=== PATIENT | female | born 1990 | race Caucasian/White ===

== ENCOUNTER 2018-06-12 20:30 | Emergency (ER) | payer MEDICAID ==
[2018-06-12 20:35] VITALS: Ht 154.9 cm
[2018-06-12 21:25] LABS: BASOPHIL % 0.7 % (0-2); PLATELET COUNT 285 x10^3mcL (130-400); RED CELL DISTRIBUTION WIDTH 14.1 % (11.5-14.5)
[2018-06-12 21:34] LABS: CALCIUM 8.5 mg/dL (8.5-10.1); CARBON DIOXIDE 26.2 mmol/L (21-32); CHLORIDE SERUM 106 mmol/L (98-107); CREATININE SERUM 0.8 mg/dL (0.6-1.0); GFR1 > 60 mL/min; GLUCOSE SERUM 123 mg/dL (74-106); POTASSIUM SERUM 3.7 mmol/L (3.5-5.1); SODIUM SERUM 140 mmol/L (136-145)
[2018-06-12 21:39] LABS: ALKALINE PHOSPHATASE 97 U/L (46-116); ALT/SGPT 52 U/L (14-59); AST/SGOT 25 U/L (15-37); BILIRUBIN TOTAL 0.26 mg/dL (0.20-1.00)
[2018-06-12 21:40] LABS: ALBUMIN 3.3 g/dL (3.4-5.0)
[2018-06-12 22:28] VITALS: BP 132/90
== END 2018-06-12 22:28 | disposition home or self-care (01) ==
LOC: ED 20:30 → DU 22:15 → ED 22:15
PROVIDERS: Specialist
DX: R07.89 Other chest pain (principal); R06.02 Shortness of breath; Z90.89 Acquired absence of other organs
CPT/HCPCS: 36415; Q0092

== ENCOUNTER 2018-08-14 20:02 | Emergency (ER) | payer MEDICAID ==
[~2018-08-14] VITALS: Ht 154.9 cm; Wt 118.8 kg
[2018-08-14 20:11] VITALS: Ht 154.9 cm; Wt 118.8 kg
[2018-08-14 21:26] VITALS: BP 121/74
== END 2018-08-14 21:26 | disposition home or self-care (01) ==
LOC: ED 20:02
DX: J20.9 Acute bronchitis, unspecified (principal); R19.7 Diarrhea, unspecified; R11.10 Vomiting, unspecified

== ENCOUNTER 2018-11-22 20:44 | Emergency (ER) | payer BC ==
[~2018-11-22] VITALS: Ht 154.9 cm; Wt 118.8 kg
[2018-11-22 21:00] VITALS: Ht 154.9 cm; Wt 118.8 kg
[2018-11-22 21:33] VITALS: BP 118/84
== END 2018-11-22 21:33 | disposition home or self-care (01) ==
LOC: ED 20:44
DX: S51.851A Open bite of right forearm, initial encounter (principal); Y04.1XXA Assault by human bite, initial encounter; Y93.89 Activity, other specified; Y92.89 Other specified places as the place of occurrence of the external cause; Y99.8 Other external cause status

== ENCOUNTER 2019-03-03 20:15 | Emergency (ER) | payer BC ==
[~2019-03-03] VITALS: Ht 154.9 cm; Wt 113.4 kg
[2019-03-03 20:18] VITALS: Ht 154.9 cm; Wt 113.4 kg
[2019-03-03 21:55] VITALS: BP 123/68
== END 2019-03-03 21:55 | disposition home or self-care (01) ==
LOC: ED 20:15
DX: R07.89 Other chest pain (principal); Z90.89 Acquired absence of other organs
CPT/HCPCS: J1885; Q0092

== ENCOUNTER 2019-08-14 11:17 | Emergency (ER) | payer MEDICAID ==
[~2019-08-14] VITALS: Ht 160 cm; Wt 120.4 kg
[2019-08-14 11:31] VITALS: BP 131/89; Ht 160 cm; Wt 120.4 kg
[2019-08-14 11:59] LABS: BASOPHIL % 0.4 % (0-2); PLATELET COUNT 294 x10^3mcL (130-400); RED CELL DISTRIBUTION WIDTH 14.5 % (11.5-14.5)
[2019-08-14 12:13] LABS: CARBON DIOXIDE 28.1 mmol/L (21-32); CHLORIDE SERUM 106 mmol/L (98-107); CREATININE SERUM 0.6 mg/dL (0.6-1.0); GFR1 > 60 mL/min; GLUCOSE SERUM 116 mg/dL (74-106); POTASSIUM SERUM 3.7 mmol/L (3.5-5.1); SODIUM SERUM 142 mmol/L (136-145)
[2019-08-14 12:21] LABS: ALKALINE PHOSPHATASE 98 U/L (46-116); ALT/SGPT 38 U/L (14-59); AST/SGOT 20 U/L (15-37); BILIRUBIN TOTAL 0.19 mg/dL (0.20-1.00); TOTAL PROTEIN, SERUM 7.6 g/dL (6.4-8.2)
== END 2019-08-14 13:08 | disposition home or self-care (01) ==
LOC: ED 11:17
PROVIDERS: Specialist
DX: N93.8 Other specified abnormal uterine and vaginal bleeding (principal); D64.9 Anemia, unspecified; Z90.89 Acquired absence of other organs
CPT/HCPCS: 36415; 87491; 87591